=== PATIENT | female | born 1980 | race Two or more races ===

== ENCOUNTER → 2023-07-13 | Emergency (ER) | payer SELFPAY ==
[~2023-07-13] MED LIST: AZITHROMYCIN 250 MG TAB ONE; CEFTRIAXONE 500 MG/VIAL ONE; ONDANSETRON 4 MG (ODT) TAB ONE; WATER FOR INJ,STERILE 10 ML ONE; metroNIDAZOLE 500 MG TABLET ONE
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
[2023-07-14 22:21] VITALS: BP 165/104; TEMP 98.2; O2SAT 100
== END ==
LOC: ER 09:29
DX: T74.21XA Adult sexual abuse, confirmed, initial encounter (principal); S10.93XA Contusion of unspecified part of neck, initial encounter
CPT/HCPCS: Q0162